=== PATIENT | male | born 1975 | race Hispanic/Latino ===

== ENCOUNTER 2019-09-20 14:15 | Emergency (ER) | payer OTHER | END 2019-09-20 14:56 | disposition home or self-care (01) | LOC: EDH 14:15 | DX: H66.92 Otitis media, unspecified, left ear (principal); Z72.0 Tobacco use ==

== ENCOUNTER 2022-01-02 08:16 | Emergency (ER) | payer OTHER ==
[2022-01-02 09:47] VITALS: BP 125/77
== END 2022-01-02 09:47 | disposition home or self-care (01) ==
LOC: EDH 08:16
DX: S13.4XXA Sprain of ligaments of cervical spine, initial encounter (principal); V59.40XA Driver of pick-up truck or van injured in collision with unspecified motor vehicles in traffic accident, initial encounter; Y93.89 Activity, other specified; Y92.413 State road as the place of occurrence of the external cause; Y99.8 Other external cause status
CPT/HCPCS: 72125